=== PATIENT | male | born 1960 | race Caucasian/White ===

== ENCOUNTER 2017-03-20 11:34 | Emergency (ER) | payer SELFPAY ==
[~2017-03-20] VITALS: Ht 185.4 cm; Wt 65.0 kg
[2017-03-20 11:38] VITALS: BP 119/74; PULSE 83; RESP 16; O2SAT 98
--- NOTE | 2017-03-20 11:46 | ED.REPORT ---
HPI-Dental/Mouth Prob Date of Service Mar 20, 2017 ED Provider: Corina May MD The pt is a 56 y/o male presenting to the ED complaining of R lower jaw pain. He states that he has 3 cavities on the R side and has an appointment to see his dentist in two weeks. The pt has used Tylenol and Ibuprofen w/o relief. Nursing Notes Stated Complaint: TOOTH ACHE Chief Complaint: R lower jaw pain Nursing Notes Reviewed: Yes Allergies: Coded Allergies: No Known Allergies (Unverified , 03/20/17) Scheduled Amoxicillin/Clav K 875-125 mg (Augmentin 875-125 mg) 1 Each Tablet 1 TABLET PO BID Scheduled PRN Hydrocodone-Acetaminophen 5-325 mg (Hydrocodone-Acetaminophen 5-325 mg) 1 Each Tablet 1 TABLET PO Q4H PRN PRN For Pain General Time Seen by MD: 11:46 Chief Complaint Other (R lower jaw pain) Hx Obtained From: Patient, Spouse Arrived By: Walk-in Symptom Duration: Since onset Recent Healthcare: No recent doctor visit, No recent hospitalization Past Medical History Past Medical History None reported Past Surgical History None reported Smoking History Unknown if Ever Smoker Social History Other Social History: Good social support, Ambulatory Status Independent Review of Systems R lower jaw pain Complete sys rev & neg: except as marked. Physical Exam Initial Vital Signs Vital Signs (First) Date Time Temp Pulse Resp B/P Pulse Ox O2 Delivery O2 Flow Rate FiO2 03/20/17 11:38 36.7 83 16 119/74 98 Room Air Initial VS: Reviewed General/Constitutional: Well-developed, Well-nourished Head / Eyes: Atraumatic, Normocephalic, PERRL Respiratory: Breath sounds normal, Clear to auscultation, No respiratory distress Cardiovascular: Regular rate & rhythm, Heart sounds normal, Intact distal pulses Abdomen / GI: Soft, Non-tender Extremities: Vascular intact, Neuro intact, No swelling, No tenderness Skin: Warm, Dry, No cyanosis Neurologic: Alert, Oriented, Nonfocal Psychiatric: Mood/affect normal, Behavior normal, Normal thought content ENT: Airway patent Tenderness over R lower molar w/ dental caries present No signs of abscess No erythema or fluctuance Neck: Atraumatic, Supple, Full range of motion Re-Eval/Medical Decision Med Decision/Clinical Course Right molar dental caries cannot rule out developing infection. No evidence of abscess. We will place on Augmentin. Follow-up dentist. Source of Hx: Family Counseled Regarding: Diagnosis, Need for follow-up, When/why to return to ED Discharge & Departure Primary Impression: Dental infection Disposition: Home Discharge Condition All VS Reviewed: Yes Condition: Stable Additional Instructions: Thank for you for coming into the emergency department today. You were diagnosed with a dental infection. Please take the antibiotics as scheduled and follow up with your dentist when you get back home. Return if worsening swelling, difficulty breathing/swallowing , other new/worsening symptoms. I hope you feel better soon. Referrals: Papa Hayesibsimeon Attestation Portions of this note were transcribed by Ifeanyi Loya. I, Dr. Arriaga personally performed the history, physical exam and medical decision-making; I reviewed and confirmed the accuracy of the information in the transcribed note. copies to: Papa Hayes Ben M MD Mar 20, 2017 11:46 Ifeanyi Loya Mar 20, 2017 11:59
[2017-03-20] MEDS ORDERED: AMOX-366 PO (11:59)
[2017-03-20] MEDS ORDERED: HYDR-4003 PO (11:59)
== END 2017-03-20 12:05 | disposition home or self-care (01) ==
LOC: SED 11:34
DX: K04.7 Periapical abscess without sinus (principal)

== ENCOUNTER 2017-04-05 14:56 | Emergency (ER) | payer SELFPAY ==
[~2017-04-05] VITALS: Ht 185.4 cm; Wt 69.5 kg
[~2017-04-05 14:56] MED LIST: AMOX-366 PO; HYDR-4003 PO
[2017-04-05 15:14] VITALS: BP 111/72; PULSE 71; RESP 18; O2SAT 97
--- NOTE | 2017-04-05 15:27 | ED.REPORT ---
HPI-Dental/Mouth Prob Date of Service Apr 05, 2017 ED Provider: Ana Doran History of Present Illness: dental pain, has cavity, no appointment with dentist. took antibiotics that were prescribed. Newly arrived here from [place] kids are here. Arrived here around the first february.. No primary care either. 04/08 Nursing Notes Stated Complaint: DENTAL PAIN Chief Complaint: Dental Nursing Notes Reviewed: Yes Allergies: Coded Allergies: No Known Allergies (Unverified , 04/05/17) General Time Seen by MD: 15:18 Chief Complaint Tooth pain Hx Obtained From: Patient Onset Occurred: More than a week ago... (1 month) Symptom Duration: Since onset Past Medical History Past Medical History None reported Past Surgical History None reported Smoking History Unknown if Ever Smoker Social History Other Social History: Good social support, Occupation newly arrived, no work or school 04/05/2017 Ambulatory Status Independent Review of Systems Basic Review of Systems Eyes: Vision NL, No discharge Hematologic: No bleeding, No bruising Psychiatric: Normal thought content Physical Exam Initial Vital Signs Vital Signs (First) Date Time Temp Pulse Resp B/P Pulse Ox O2 Delivery O2 Flow Rate FiO2 04/05/17 15:14 36.6 71 18 111/72 97 Room Air Initial VS: Reviewed, Vital signs normal General/Constitutional: Well-developed, Well-nourished Head / Eyes: Atraumatic, Normocephalic, PERRL Respiratory: Breath sounds normal, Clear to auscultation, No respiratory distress Cardiovascular: Regular rate & rhythm, Heart sounds normal, Intact distal pulses Abdomen / GI: Soft, Non-tender, No guarding, No rebound, No distention Back: No CVA tenderness Lymphatic: No lymphadenopathy Extremities: Vascular intact, Neuro intact, No swelling, No tenderness Skin: Warm, Dry, No cyanosis Neurologic: Alert, Oriented, Nonfocal Psychiatric: Mood/affect normal, Behavior normal, Normal thought content ENT: Atraumatic, Airway patent, Mucous membranes moist, Pharynx NL, No peritonsillar abscess patient has upper dentures. Teeth in question is the remaining molar on lower right, has a filling that is intact and a molar on the left with intact filling. Gums are pink with no sign of erthyma or infection. No increased in lymph nodes, no trismus, patient able to open mouth 3 fingers wide. Patient with augmentin prescribed on 03/20/2017 Neck: Atraumatic, Supple, No meningismus, Full range of motion General/Constitutional: Awake, Alert, No acute distress, Well appearing, Well developed, Well hydrated, Well nourished, Cooperative, Not toxic appearing Respiratory / Chest: Atraumatic, Breath sounds NL, Breath sounds = bilat, No respiratory distress Cardiovascular: Heart rate NL, Regular rhythm, Heart sounds NL, No gallop Re-Eval/Medical Decision Med Decision/Clinical Course Patient new in [facility]. [facility] indicates visit on 03/04/2017 #18 percocet from [facility], 03/16/2017 #15 percocet from [facility], 03/20/2017 # 8 vicodin and antibiotics from [facility] , 03/23/2017 # 15 percocet from [facility]. dictation from visit here on 03/20 indicates patient reported he had an appointment in 2 weeks. Today denies having an appointment. Patient and female partner requesting opiate pain medication, advised unable to continue to provide from the ER. As he had antibiotics 10 days ago, no indication to restart antibiotics. Offered toradol injection and dental block, he declines as he does not like needles. Advised resources would be provided, after d/c instructions were written, patient had left the department already. Concern for drug seeking Discharge & Departure Primary Impression: Toothache Additional Impression: Drug-seeking behavior Disposition: Home Patient Instructions: [facility] (ED) Additional Instructions: I am sorry you are having dental issues. There are some dental resources that you can use to get care. There is an emergency dental care number that will be provided. Also [facility] is open Sunday thru Sunday. Please call them to see if you can get in this week. As you recently had antibiotics prescribed on 03/20/2017 and were of little help, it does not make sense to provided antibiotics again. I see you have also been to [facility] on 03/04 , 03/16 and 03/23 which resulted in pain medication prescriptions. I have offered a toradol injection and a local injection but at this time you are not interested in injections. Please use the resources provided to seek care. Please establish in primary care with [facility] Referrals: NOPCP (PCP) [facility] EDSuperv[facility] Provider for APC: Rudolph Sapp DO copies to: [facility] Ana Doran Apr 05, 2017 15:27
[2017-04-05 15:46] VITALS: BP 111/72; PULSE 71; RESP 18; O2SAT 97
== END 2017-04-05 15:46 | disposition home or self-care (01) ==
LOC: SED 14:56
DX: K08.89 Other specified disorders of teeth and supporting structures (principal); Z76.5 Malingerer [conscious simulation]